=== PATIENT | female | born 1990 | race American Indian/Alaskan Native ===

== ENCOUNTER 2018-01-10 19:42 | Emergency (ER) | payer MEDICAID ==
[2018-01-10 21:21] LABS: HCG Qualitative,Urine Negative (Negative)
[2018-01-10 21:22] LABS: Bacteria,Urine 1+ /HPF (Negative); Bilirubin,Urine NEG (Negative); Blood,Urine NEG (Negative); Color,Urine Yellow (Yellow); Mucus,Urine 3+ /HPF; Nitrite,Urine NEG (Negative); Protein,Urine <15 mg/dL mg/dL (Negative); Urobilinogen,Urine < 2.0 mg/dL (<2.0)
[2018-01-11] MEDS ORDERED: ROCEPHIN IM ONE (00:40)
[2018-01-11] MEDS ORDERED: XYLOCAINE 1% MPF 5 mL INFILTRATI ONE (00:40)
[2018-01-11] MEDS ORDERED: ZITHROMAX PO ONE (00:40)
--- NOTE | 2018-01-11 00:41 | Emergency Department Report ---
ED Female HPI - General Chief complaint: Urogenital-Female Stated complaint: BUMPS ON THE VAGINAL AREA Time Seen by Provider: 01/10/18 23:01 Source: patient Mode of arrival: Ambulatory Limitations: No Limitations - History of Present Illness Initial comments: 27-year-old female presents with complaint of vaginal discharge for one week. States it is thick and white. Complains of some irritation to her labia. Denies any fevers chills nausea vomiting abdominal pain. Denies any obvious genitourinary rash. States she has been sexually active without protection with more than 2 partners within the last 2 months. States it is a burning sensation outside of her labia. Does state she has had chlamydia in the past MD Complaint: vaginal discharge Onset/Timin -: week(s) Location: labia Are you Now?: No - Related Data Previous Rx's Medication Instructions Recorded Last Taken Type Fluconazole [Diflucan] 150 mg PO ONCE #1 tablet 01/11/18 Unknown Rx metroNIDAZOLE [Metronidazole] 500 mg PO BID #14 tablet 01/11/18 Unknown Rx Allergies Allergy/AdvReac Type Severity Reaction Status Date / Time No Known Allergies Allergy Verified 01/10/18 20:14 ED Review of Systems ROS: Stated complaint: BUMPS ON THE VAGINAL AREA Other details as noted in HPI Constitutional: denies: chills, fever Eyes: denies: eye pain, eye discharge, vision change ENT: denies: ear pain, throat pain Respiratory: denies: cough, shortness of breath, wheezing Cardiovascular: denies: chest pain, palpitations Endocrine: no symptoms reported Gastrointestinal: denies: abdominal pain, nausea, diarrhea Genitourinary: discharge (vaginal discharge for one week). denies: urgency, dysuria Musculoskeletal: denies: back pain, joint swelling, arthralgia Skin: denies: rash, lesions Neurological: denies: headache, weakness, paresthesias Psychiatric: denies: anxiety, depression Hematological/Lymphatic: denies: easy bleeding, easy bruising ED Past Medical Hx - Past Medical History Previous Medical History?: No - Surgical History Past Surgical History?: No - Social History Smoking Status: Never Smoker Substance Use Type: None - Medications Home Medications: Home Medications Medication Instructions Recorded Confirmed Last Taken Type Fluconazole [Diflucan] 150 mg PO ONCE #1 tablet 01/11/18 Unknown Rx metroNIDAZOLE [Metronidazole] 500 mg PO BID #14 tablet 01/11/18 Unknown Rx ED Physical Exam - General Limitations: No Limitations General appearance: alert, in no apparent distress - Head Head exam: Present: atraumatic, normocephalic - Eye Eye exam: Present: normal appearance - ENT ENT exam: Present: mucous membranes moist - Neck Neck exam: Present: normal inspection - Respiratory Respiratory exam: Present: normal lung sounds bilaterally. Absent: respiratory distress - Cardiovascular Cardiovascular Exam: Present: regular rate, normal rhythm. Absent: systolic murmur, diastolic murmur, rubs, gallop - GI/Abdominal GI/Abdominal exam: Present: soft, normal bowel sounds - Speculum exam: Present: vaginal discharge (White/yellow vaginal discharge on clinical exam) Bi-manual exam: Present: normal bi-manual exam (no cervical motion tenderness on exam) - Extremities Exam Extremities exam: Present: normal inspection - Back Exam Back exam: Present: normal inspection - Neurological Exam Neurological exam: Present: alert, oriented X3 - Psychiatric Psychiatric exam: Present: normal affect, normal mood - Skin Skin exam: Present: warm, dry, intact, normal color. Absent: rash ED Course Vital Signs 01/10/18 20:14 Temperature 98.5 F Pulse Rate 85 Respiratory 16 Rate Blood Pressure 122/85 O2 Sat by Pulse 100 Oximetry ED Medical Decision Making - Medical Decision Making A/P: Cervicitis likely bacterial vaginosis 1-patient empirically treated with azithromycin and ceftriaxone 2-GC cultures sent 3-patient given follow-up with primary care/[facility] AC[facility] DIALYSIS 4- course of metronidazole 5- fluconazole for yeast Critical care attestation.: If time is entered above; I have spent that time in minutes in the direct care of this critically ill patient, excluding procedure time. ED Disposition Clinical Impression: Vaginal discharge Disposition: DC-01 TO HOME OR SELFCARE Is pt being admited?: No Does the pt Need Aspirin: No Condition: Stable Instructions: Bacterial Vaginosis (ED), Cervicitis (ED) Prescriptions: Fluconazole [Diflucan] 150 mg PO ONCE #1 tablet metroNIDAZOLE [Metronidazole] 500 mg PO BID #14 tablet Referrals: [facility] [Provider Group] - 3-5 Days [facility] [Provider Group] - 3-5 Days [facility] [Provider Group] - 3-5 Days Forms: Work/School Release Form(ED) Time of Disposition: 00:50
[2018-01-11 02:04] VITALS: BP 127/81
== END 2018-01-11 02:03 | disposition home or self-care (01) ==
LOC: ED 19:42
DX: N89.8 Other specified noninflammatory disorders of vagina (principal)
CPT/HCPCS: 81001; 81025; 87210; 87591; 96372; 99284; J0696